=== PATIENT | female | born 1965 | race African-American/Black ===

== ENCOUNTER → 2017-08-09 | Outpatient (CLI) | payer OTHER ==
[2016-02-17 10:08] VITALS: BP 114/60
[~2017-08-09] MED LIST: OXYC-328 PO
--- NOTE | 2017-08-09 12:44 | RAD ---
2 views left knee 08/09/2017 2:00 AM Indication: DEGENERATIVE JOINT DISEASE. Comparison: None Findings: No fracture or dislocation is identified. No evidence of joint effusion is seen. Mild degenerative changes including very mild medial compartment narrowing, minimal tibial spine spurring, and mild osteophytosis involving the involving the lateral and patellofemoral compartments noted. Impression: Mild degenerative changes of the left knee without evidence of acute osseous abnormality
== END | disposition home or self-care (01) ==
LOC: RAD 09:29
DX: M17.12 Unilateral primary osteoarthritis, left knee (principal)
CPT/HCPCS: 73560